=== PATIENT | female | born 1990 | race Caucasian/White ===

== ENCOUNTER 2019-11-02 13:12 | Outpatient (CLI) | payer OTHER | END 2019-11-02 13:43 | disposition home or self-care (01) | LOC: LDOP 13:12 | PROVIDERS: ATTEND Obstetrics & Gynecology | DX: O36.5930 Maternal care for other known or suspected poor fetal growth, third trimester, not applicable or unspecified (principal); Z3A.35 35 weeks gestation of pregnancy | CPT/HCPCS: 59025 ==

== ENCOUNTER → 2019-11-23 | Outpatient (CLI) | payer OTHER ==
[~2019-11-23] MED LIST: DOCU-131 PO; IBUP-1223 PO
== END | disposition home or self-care (01) ==
LOC: STAR 15:47
PROVIDERS: ATTEND Obstetrics & Gynecology
DX: Z01.812 Encounter for preprocedural laboratory examination (principal); Z20.828 Contact with and (suspected) exposure to other viral communicable diseases
CPT/HCPCS: 36415; 87635

== ENCOUNTER 2019-11-28 06:42 | Inpatient (IN) | payer OTHER ==
[~2019-11-28] VITALS: Ht 167.6 cm; Wt 77.0 kg
[2019-11-28] MEDS ORDERED: OXYTOCIN 30U/ 0.9% NaCL 500ML 500 ML IV ONE (07:21)
[2019-11-28] MEDS: D5%-LACTATED RINGERS 1,000 ML IV SCH ×3 (07:21→23:21)
[2019-11-28] MEDS ORDERED: OXYTOCIN 30U/ 0.9% NaCL 500ML 500 ML IV PRN (07:21)
[2019-11-28] MEDS ORDERED: SODIUM CITRATE/CITRIC ACID 30 ML UDC PO PRN (07:30)
[2019-11-28] MEDS ORDERED: TERBUTALINE 1 MG/ML, 1ML IVPush PRN (07:30)
[2019-11-28] MEDS ORDERED: FENTANYL PF 100 MCG/2ML IVPush PRN (07:30)
[2019-11-28] MEDS ORDERED: METOCLOPRAMIDE 5 MG/ML, 2ML IVPush PRN (07:30)
[2019-11-28] MEDS ORDERED: ONDANSETRON 2MG/ML, 2ML IVPush PRN (07:30)
[2019-11-28] MEDS ORDERED: LIDOCAINE 1%, 20ML ONE (07:30)
[2019-11-28] MEDS ORDERED: FENTANYL PF 100 MCG/2ML IV PRN (07:30)
[2019-11-28] MEDS ORDERED: TERBUTALINE 1 MG/ML, 1ML SQ PRN (07:30)
[2019-11-28] MEDS ORDERED: CALCIUM CARBONATE 500 MG TAB.CHEW PO PRN (07:30)
[2019-11-28] MEDS ORDERED: MISOPROSTOL 200 MCG TABLET ONE (07:31)
[2019-11-28] MEDS ORDERED: OXYTOCIN 30U/ 0.9% NaCL 500ML 500 ML ONE ×2 (07:31→11:58)
[2019-11-28 07:48] LABS: BASOPHILS # (AUTO) 0.02 x10^3/uL (0-0.1); BASOPHILS % (AUTO) 0 % (0-1); EOSINOPHILS # (AUTO) 0.06 x10^3/uL (0-0.4); EOSINOPHILS % (AUTO) 1 % (1-7); LYMPHOCYTES # (AUTO) 1.12 x10^3/uL (1-3.4); LYMPHOCYTES % (AUTO) 13 % (22-44); MD NO; MEAN CORPUSCULAR HEMOGLOBIN 29.7 pg (27.0-34.8); MEAN CORPUSCULAR HGB CONC 33.1 g/dL (32.4-35.8); MEAN PLATELET VOLUME 8.4 fL (7.4-10.4); MONOCYTES # (AUTO) 0.46 x10^3/uL (0.2-0.8); MONOCYTES % (AUTO) 6 % (2-9); NEUTROPHILS # (AUTO) 6.73 x10^3/uL (1.8-6.8); NEUTROPHILS % (AUTO) 80 % (42-75); PLATELET COUNT 188 x10^3/uL (130-400); RED BLOOD COUNT 4.41 x10^6/uL (3.82-5.3); RED CELL DISTRIBUTION WIDTH 13.5 % (9.6-15.2)
[2019-11-28] MEDS: PLEASE ENTER HEIGHT AND WEIGHT MC SCH ×2 (08:00→16:00)
[2019-11-28] MEDS: LACTATED RINGERS 1,000 ML IV SCH ×3 (08:24→17:35)
[2019-11-28] MEDS ORDERED: NEWBORN KIT ONE (08:41)
[2019-11-28] MEDS ORDERED: FENTANYL PF 100 MCG/2ML ONE (15:55)
[2019-11-28] MEDS ORDERED: FENTANYL/BUPIV./NS/PF 250 ML EPIDCONT ONE (16:04)
[2019-11-28] MEDS ORDERED: TERBUTALINE 1 MG/ML, 1ML ONE (19:52)
[2019-11-28] MEDS ORDERED: METOCLOPRAMIDE 5 MG/ML, 2ML ONE (19:53)
[2019-11-29] MEDS: PLEASE ENTER HEIGHT AND WEIGHT MC SCH
[2019-11-29] MEDS ORDERED: OXYTOCIN 30U/ 0.9% NaCL 500ML 500 ML ONE (00:42)
[2019-11-29] MEDS: OXYTOCIN 30U/ 0.9% NaCL 500ML 500 ML IV SCH ×3 (01:37→21:37)
[2019-11-29] MEDS: LACTATED RINGERS 1,000 ML IV SCH (01:51)
[2019-11-29] MEDS ORDERED: ACETAMINOPHEN 325 MG TABLET PO PRN (02:00)
[2019-11-29] MEDS ORDERED: ONDANSETRON 2MG/ML, 2ML IV PRN (02:00)
[2019-11-29] MEDS ORDERED: HYDROcodone/APAP 5/325 TABLET PO PRN (02:00)
[2019-11-29] MEDS ORDERED: RHOGAM FROM BLOOD BANK 1 NOTE EA IM/IV ONE (02:00)
[2019-11-29] MEDS ORDERED: IBUPROFEN 800 MG TABLET PO PRN (02:00)
[2019-11-29] MEDS ORDERED: OXYcodone/APAP 5/325MG TABLET PO PRN (02:00)
[2019-11-29] MEDS ORDERED: MISOPROSTOL 200 MCG TABLET PR PRN (02:00)
[2019-11-29] MEDS ORDERED: BISACODYL 10 MG SUPP PR PRN (02:00)
[2019-11-29] MEDS ORDERED: IBUPROFEN 600 MG TABLET ONE (02:13)
[2019-11-29 03:00] VITALS: BP 106/70
[2019-11-29 08:07] LABS: MEAN CORPUSCULAR HEMOGLOBIN 29.9 pg (27.0-34.8); MEAN CORPUSCULAR HGB CONC 33.2 g/dL (32.4-35.8); MEAN PLATELET VOLUME 8.4 fL (7.4-10.4); PLATELET COUNT 181 x10^3/uL (130-400); RED BLOOD COUNT 4.01 x10^6/uL (3.82-5.3); RED CELL DISTRIBUTION WIDTH 13.7 % (9.6-15.2)
[2019-11-29 08:24] LABS: MD YES
[2019-11-29 08:25] LABS: <PLATELET ESTIMATE> DECREASED; <PLT MORPHOLOGY> NORMAL PLT MORPH; <RBC MORPHOLOGY> NORMAL; BANDS%(MANUAL) 2 % (0-7); LYMPH#(MANUAL) 0.91 x10^3/uL (1-3.4); LYMPHS% (MANUAL) 6 % (22-44); MONOS#(MANUAL) 1.52 x10^3/uL (0.3-2.7); MONOS% (MANUAL) 10 % (2-9); SEG#(MANUAL) 12.46 x10^3/uL (1.8-6.8); SEGS% (MANUAL) 82 % (42-75)
[2019-11-29 08:26] VITALS: BP 103/63
[2019-11-29] MEDS: PRENATAL VIT/IRON/FA 1 EACH TABLET PO SCH (10:34)
[2019-11-29] MEDS: DOCUSATE 100 MG CAPSULE PO PRN (10:34)
[2019-11-29] MEDS: IBUPROFEN 200 MG TABLET PO PRN ×2 (10:37→17:35)
[2019-11-29 13:00] VITALS: BP 117/70
[2019-11-29 17:20] VITALS: BP 118/82
[2019-11-29 19:48] VITALS: BP 113/69
[2019-11-30 00:17] VITALS: BP 92/59
[2019-11-30 07:30] VITALS: BP 109/74
[2019-11-30] MEDS: IBUPROFEN 200 MG TABLET PO PRN (08:10)
[2019-11-30] MEDS: PRENATAL VIT/IRON/FA 1 EACH TABLET PO SCH (08:10)
[2019-11-30] MEDS: DOCUSATE 100 MG CAPSULE PO PRN (08:10)
[2019-11-30] MEDS ORDERED: IBUP-1223 PO (09:00)
[2019-11-30] MEDS ORDERED: DOCU-131 PO (09:00)
== END 2019-11-30 10:16 | disposition home or self-care (01) | DRG 807 ==
LOC: LDIP 06:42 → 2NW 11-29 02:35
PROVIDERS: ADMIT Obstetrics & Gynecology; ATTEND Obstetrics & Gynecology
PROC: 10E0XZZ Delivery of Products of Conception, External Approach (ICD-10-PCS; principal; 2019-11-29)
PROC: 0KQM0ZZ Repair Perineum Muscle, Open Approach (ICD-10-PCS; 2019-11-29)
PROC: 3E0234Z Introduction of Serum, Toxoid and Vaccine into Muscle, Percutaneous Approach (ICD-10-PCS; 2019-11-29)
PROC: 3E0R3BZ Introduction of Anesthetic Agent into Spinal Canal, Percutaneous Approach (ICD-10-PCS; 2019-11-29)
PROC: 00HU33Z Insertion of Infusion Device into Spinal Canal, Percutaneous Approach (ICD-10-PCS; 2019-11-29)
DX: O36.5930 Maternal care for other known or suspected poor fetal growth, third trimester, not applicable or unspecified (principal); Z37.0 Single live birth; Z3A.39 39 weeks gestation of pregnancy; O75.89 Other specified complications of labor and delivery; O69.81X0 Labor and delivery complicated by cord around neck, without compression, not applicable or unspecified; O70.1 Second degree perineal laceration during delivery
CPT/HCPCS: 36415; 85025; 85461; 86592; 86850; 86900; G0378; J2790; J3010; J2590; J7120

== ENCOUNTER → 2020-06-22 | Outpatient (CLI) | payer OTHER | END | disposition home or self-care (01) | LOC: RAD 10:42 | PROVIDERS: ATTEND Chiropractor | DX: M99.02 Segmental and somatic dysfunction of thoracic region (principal); M99.03 Segmental and somatic dysfunction of lumbar region; M99.04 Segmental and somatic dysfunction of sacral region; M99.01 Segmental and somatic dysfunction of cervical region | CPT/HCPCS: 72040; 72072; 72100; 72170 ==